=== PATIENT | female | born 1970 | race Caucasian/White ===

== ENCOUNTER 2022-01-20 18:52 | Emergency (ER) | payer BC ==
[2022-01-20] MEDS ORDERED: Sodium Chloride 0.9% 10 ML Syringe FLUSH PRN (19:15)
[2022-01-20] MEDS: Sodium Chloride 0.9% 1,000 ML IV ONE (19:30)
[2022-01-20] MEDS: Ondansetron 4 MG/2 ML SDV IVPUSH ONE ×2 (19:32→23:25)
[2022-01-20] MEDS: fentaNYL 50 MCG/ML SDV IVPUSH ONE ×2 (19:34→21:24)
[2022-01-20 19:45] LABS: CHLORIDE,CL 103 mmol/L (98-107); SODIUM,NA 141 mmol/L (136-145)
[2022-01-20 19:47] LABS: ANION GAP 13.8 mmol/L (5-15); ESTIMATED GFR 109 mL/min (>=60)
[2022-01-20] MEDS: Iopamidol 612 MG/ML 100 ML Bottle IVPUSH ONE (20:13)
[2022-01-20] MEDS ORDERED: Pantoprazole 40 MG in Sodium Chloride 0.9% 100 ML IV SCH (21:15)
[2022-01-20] MEDS: Pantoprazole 40 MG Vial IVPUSH ONE (21:22)
[2022-01-20] MEDS: GI Cocktail Oral Solution 30 ML PO ONE (22:36)
[2022-01-20] MEDS: Sucralfate 1 GM Tab PO ONE (22:36)
[2022-01-20 23:47] VITALS: BP 121/72; PULSE 68
== END 2022-01-20 23:35 | disposition home or self-care (01) ==
LOC: VM.ED 18:52
DX: K25.0 Acute gastric ulcer with hemorrhage (principal); R11.2 Nausea with vomiting, unspecified; Z88.8 Allergy status to other drugs, medicaments and biological substances; Z79.899 Other long term (current) drug therapy; Z98.84 Bariatric surgery status
CPT/HCPCS: 36415; 36430; 74177; 80053; 82150; 82550; 83690; 85025; 86140; 86850; 86900; 86901; 86920; 86922; 96361; 96374; 96375; 96376; 99284; 99284-25; A9270-GY; C9113; J2405; J3010; J7030; P9016; Q9967

== ENCOUNTER 2024-10-07 22:53 | Emergency (ER) | payer BC ==
[2024-10-07] MEDS ORDERED: Sodium Chloride 0.9% 10 ML Syringe FLUSH PRN (22:57)
[2024-10-07] MEDS: Alum Hydrox/Mag Hydrox/Simeth 30 ML, Lidocaine 2% 15 ML, Promethazine 12.5 MG PO ONE (23:08)
[2024-10-07] MEDS: Ondansetron 4 MG/2 ML SDV IVPUSH ONE (23:09)
[2024-10-07 23:23] LABS: BASOPHILS PERCENT AUTO 0.9 % (0.2-1.2); EOSINOPHILS ABSOLUTE AUTO 0.1 x10^3/uL (0.0-0.5); HEMATOCRIT 35.9 % (33.0-47.0); HEMOGLOBIN 9.9 g/dL (12.0-16.0); IMMATURE GRAN ABSOLUTE AUTO 0.01 x10^3/uL (0.00-0.07); LYMPHOCYTES ABSOLUTE AUTO 1.8 x10^3/uL (1.0-4.8); LYMPHOCYTES PERCENT AUTO 37.4 % (25.0-50.0); MEAN CORPUSCULAR HEMOGLOBIN 20.6 pg (26.0-32.0); MEAN CORPUSCULAR HGB CONC 27.6 g/dL (32.0-36.0); MEAN CORPUSCULAR VOLUME 74.6 fL (78.0-93.0); MONOCYTES ABSOLUTE AUTO 0.4 x10^3/uL (0.0-0.8); MONOCYTES PERCENT AUTO 8.3 % (2.0-11.0); NEUTROPHILS ABSOLUTE AUTO 2.4 x10^3/uL (1.8-7.7); NEUTROPHILS PERCENT AUTO 50.2 % (50.0-80.0); PLATELET COUNT,PLT 248 x10^3/uL (130-400); RED BLOOD CELL COUNT 4.81 x10^6/uL (4.00-5.50); WHITE BLOOD CELL COUNT,WBC 4.7 x10^3/uL (4.0-10.0)
[2024-10-07 23:48] LABS: LACTIC ACID 1.2 mmol/L (0.4-2.0)
[2024-10-07 23:50] LABS: APPEARANCE,URINE CLEAR (CLEAR); BILIRUBIN,URINE NEGATIVE (NEGATIVE); COLOR,URINE YELLOW (YELLOW); GLUCOSE,URINE NEGATIVE (NEGATIVE); KETONES,URINE NEGATIVE (NEGATIVE); LEUKOCYTE ESTERASE,URINE NEGATIVE (NEGATIVE); NITRITE,URINE NEGATIVE (NEGATIVE); OCCULT BLOOD,URINE TRACE-INTACT (NEGATIVE); PROTEIN,URINE TRACE mg/dL (NEGATIVE)
[2024-10-07 23:55] LABS: A/G RATIO 1.31; ALANINE AMINOTRANSFERASE,ALT 48 U/L (14-59); ALBUMIN 3.8 g/dL (3.4-5.0); ALKALINE PHOSPHATASE 61 U/L (46-116); AMYLASE 51 U/L (25-115); ASPARTATE AMNIOTRANSFERASE,AST 33 U/L (15-37); BILIRUBIN TOTAL 0.4 mg/dL (0.2-1.0); BLOOD UREA NITROGEN,BUN 9 mg/dL (7-18); CALCIUM 8.2 mg/dL (8.5-10.1); CARBON DIOXIDE,CO2 28 mmol/L (21-32); CHLORIDE,CL 105 mmol/L (98-107); CREATININE 0.5 mg/dL (0.55-1.02); GLUCOSE RANDOM 120 mg/dL (70-99); LIPASE 36 U/L (19-71); MAGNESIUM 2.2 mg/dL (1.8-2.4); POTASSIUM,K 3.5 mmol/L (3.5-5.1); PROTEIN TOTAL,TP 6.7 g/dL (6.4-8.2); SODIUM,NA 140 mmol/L (136-145)
[2024-10-07 23:57] LABS: ANION GAP 10.5 mmol/L (5-15); C-REACTIVE PROTEIN < 0.50 mg/dL (<=0.50); ESTIMATED GFR 112 mL/min (>=60)
[2024-10-07 23:58] LABS: BACTERIA,URINE NOT SEEN /HPF (NOT SEEN); HYALINE CASTS,URINE RARE; MUCUS,URINE FEW /LPF (NOT SEEN); RBC,URINE 0-5 /HPF (NOT SEEN); SQUAMOUS EPITHELIAL CELLS,UR FEW /HPF (NOT SEEN); WBC,URINE 0-5 /HPF (NOT SEEN)
[2024-10-08] MEDS: HYDROmorphone 0.5 MG/0.5 ML Syringe IVPUSH ONE (00:05)
[2024-10-08] MEDS: Dicyclomine 20 MG/2 ML SDV IM ONE (00:23)
[2024-10-08 00:39] VITALS: BP 103/54
[2024-10-08 01:14] VITALS: PULSE 78
== END 2024-10-08 01:24 | disposition home or self-care (01) ==
LOC: VM.ED 22:53
DX: K27.9 Peptic ulcer, site unspecified, unspecified as acute or chronic, without hemorrhage or perforation (principal); R13.10 Dysphagia, unspecified; I10 Essential (primary) hypertension; E03.9 Hypothyroidism, unspecified; E66.9 Obesity, unspecified; Z79.899 Other long term (current) drug therapy; Z88.6 Allergy status to analgesic agent; Z98.84 Bariatric surgery status; Z88.8 Allergy status to other drugs, medicaments and biological substances
CPT/HCPCS: 74019; 80053; 81001; 81025; 82150; 83605; 83690; 83735; 85025; 86140; 96372; 96374; 96375; 99284; 99284-25; A9270-GY; J0500; J2405